=== PATIENT | female | born 1950 | race Asian ===

== ENCOUNTER 2024-01-10 10:37 | Emergency (ER) | payer OTHER, MEDICAID ==
[~2024-01-10] VITALS: Ht 152.4 cm; Wt 52.7 kg
[~2024-01-10 10:37] MED LIST: ESCI-8 PO; QUET25TA36 PO
[2024-01-10 10:53] VITALS: TEMP 97.8
[2024-01-10] MEDS: ACETAMINOPHEN 325 MG TABLET PO ONE (10:56)
[2024-01-10] MEDS ORDERED: ROSU20TA73 PO (11:04)
[2024-01-10] MEDS ORDERED: DOCU100C33 PO (11:04)
[2024-01-10] MEDS ORDERED: AMLO5TAB66 PO (11:04)
[2024-01-10] MEDS ORDERED: [UNRECOGNIZED DRUG - CODE] PO (11:04)
[2024-01-10] MEDS ORDERED: TRAZ-252 PO (11:04)
[2024-01-10] MEDS ORDERED: BRIM5DRO32 OU (11:04)
[2024-01-10] MEDS ORDERED: GABA-1181 PO (11:04)
[2024-01-10] MEDS ORDERED: LATA2.5D14 OU (11:04)
[2024-01-10] MEDS ORDERED: DORZ10DR6 OU (11:04)
[2024-01-10] MEDS ORDERED: QUET100T34 PO (11:04)
[2024-01-10] MEDS ORDERED: ASPI-1444 PO (11:04)
[2024-01-10] MEDS ORDERED: FERR325T23 PO (11:04)
[2024-01-10] MEDS ORDERED: [UNRECOGNIZED DRUG - OTHER] TP (11:04)
[2024-01-10] MEDS ORDERED: SENN-277 PO (11:04)
[2024-01-10] MEDS ORDERED: METH2.5T7 PO (11:04)
[2024-01-10] MEDS ORDERED: QUET50TA24 PO (11:04)
[2024-01-10] MEDS ORDERED: ANTI DANDRUFF TP (11:04)
[2024-01-10] MEDS ORDERED: ALEN70TA80 PO (11:04)
[2024-01-10] MEDS ORDERED: FOLI-130 PO (11:04)
[2024-01-10] MEDS ORDERED: DICL100G60 TP (11:05)
[2024-01-10] MEDS ORDERED: POLY15DR16 OU (11:05)
[2024-01-10 14:08] VITALS: BP 146/63; PULSE 60; RESP 16
== END 2024-01-10 14:11 | disposition home or self-care (01) ==
LOC: EMS 10:37
DX: S80.01XA Contusion of right knee, initial encounter (principal); W19.XXXA Unspecified fall, initial encounter; Y93.01 Activity, walking, marching and hiking; Y92.89 Other specified places as the place of occurrence of the external cause; Y99.8 Other external cause status
CPT/HCPCS: 99283